=== PATIENT | female | born 1955 | race American Indian/Alaskan Native ===

== ENCOUNTER 2017-08-16 14:36 | Emergency (ER) | payer OTHER ==
[2017-08-16] MEDS ORDERED: ASPIRIN PO ONE (14:55)
[2017-08-16 15:39] LABS: Eosinophils # (Auto) 0.1 K/mm3 (0.0-0.4); Eosinophils % (Auto) 1.3 % (0.0-4.3); Hematocrit 38.1 % (30.3-42.9); Hemoglobin 12.6 gm/dl (10.1-14.3); Lymphocytes # (Auto) 2.1 K/mm3 (1.2-5.4); Lymphocytes % (Auto) 41.2 % (13.4-35.0); Mean Corpuscular HGB Conc 33 % (30-34); Mean Corpuscular Hemoglobin 29 pg (28-32); Mean Corpuscular Volume 88 fl (79-97); Monocytes # (Auto) 0.5 K/mm3 (0.0-0.8); Monocytes % (Auto) 10.6 % (0.0-7.3); Platelet Count 182 K/mm3 (140-440); Red Blood Count 4.32 M/mm3 (3.65-5.03); Red Cell Distribution Width 13.1 % (13.2-15.2)
[2017-08-16 15:54] LABS: BUN/Creatinine Ratio 26; Blood Urea Nitrogen 23 mg/dL (7-17); Calcium 9.3 mg/dL (8.4-10.2); Hemolysis Index 15
--- NOTE | 2017-08-16 16:27 | Emergency Department Report ---
ED Dizziness HPI - General Chief Complaint: Dizziness Stated Complaint: LEFT ARM PAIN/SHAKY LIGHTHEADED Time Seen by Provider: 08/16/17 16:04 Source: patient Mode of arrival: Ambulatory Limitations: No Limitations - History of Present Illness Initial Comments: Mrs. Brooks is a very pleasant 62-year-old female with history of hypertension and dyslipidemia. While she was driving today she felt shaky. She felt as if she was going to pass out. She felt very anxious. She felt her pulse. Her heart rate was normal For One week she's had left arm tingling. She attributed to a pinched nerve. She has a history of cervical disc disease status post fusion. When she walked to a fast food restaurant during the episode, she felt numbness in her right foot. She was able to ambulate. She drove to our hospital. Now sitting at rest she feels very anxious. She feels as if she is having a panic attack. 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 She was actually traveling to the airport in order to catch a plane back home to [place]. She did have a stressful week. She decreased her work load today due to distress. No previous history of panic attack or anxiety. MD Complaint: other (felt faint and felt anxious) -: Sudden Timing: sudden onset Description: near-syncope (anxious), other Severity: moderate Associated Symptoms: other (left arm tingling right foot numbness) - Related Data Previous Rx's Medication Instructions Recorded Last Taken Type LORazepam [Ativan] 0.5 mg PO TID PRN #5 tablet 08/16/17 Unknown Rx Allergies Allergy/AdvReac Type Severity Reaction Status Date / Time No Known Allergies Allergy Unverified 08/16/17 14:54 ED Review of Systems ROS: Stated complaint: LEFT ARM PAIN/SHAKY LIGHTHEADED Other details as noted in HPI Comment: All other systems reviewed and negative Constitutional: denies: fever, malaise Respiratory: denies: cough Cardiovascular: denies: chest pain, palpitations Neurological: numbness, paresthesias. denies: headache, weakness, confusion, abnormal gait, vertigo Psychiatric: denies: depression ED Past Medical Hx - Past Medical History Previous Medical History?: Yes Hx Hypertension: Yes Additional medical history: Dyslipidemia - Surgical History Additional Surgical History: Lumbar and cervical fusion - Family History Family history: CAD/AR, cancer - Social History Smoking Status: Never Smoker Substance Use Type: None Other Social History: Lives in [facility], she is and lives with her - Medications Home Medications: Home Medications Medication Instructions Recorded Confirmed Last Taken Type LORazepam [Ativan] 0.5 mg PO TID PRN #5 tablet 08/16/17 Unknown Rx ED Physical Exam - General Limitations: No Limitations General appearance: alert, in no apparent distress - Head Head exam: Present: atraumatic, normocephalic - Eye Eye exam: Present: normal appearance - ENT ENT exam: Present: mucous membranes moist - Neck Neck exam: Present: normal inspection. Absent: tenderness, meningismus - Respiratory Respiratory exam: Present: normal lung sounds bilaterally. Absent: respiratory distress, wheezes, rales, rhonchi - Cardiovascular Cardiovascular Exam: Present: regular rate, normal rhythm, normal heart sounds. Absent: systolic murmur, diastolic murmur, rubs, gallop - GI/Abdominal GI/Abdominal exam: Present: soft, normal bowel sounds. Absent: distended, tenderness, guarding, rebound - Extremities Exam Extremities exam: Present: normal inspection - Back Exam Back exam: Present: normal inspection - Neurological Exam Neurological exam: Present: alert, oriented X3 - Psychiatric Psychiatric exam: Present: normal affect, normal mood - Skin Skin exam: Present: warm, dry, intact, normal color. Absent: rash ED Medical Decision Making - Lab Data Result diagrams: 08/16/17 14:59 08/16/17 14:59 Laboratory Results - last 24 hr 08/16/17 08/16/17 14:59 14:59 WBC 5.1 RBC 4.32 Hgb 12.6 Hct 38.1 MCV 88 MCH 29 MCHC 33 RDW 13.1 L Plt Count 182 Lymph % (Auto) 41.2 H Scurry % (Auto) 10.6 H Eos % (Auto) 1.3 Baso % (Auto) 1.0 Lymph # 2.1 Scurry # 0.5 Eos # 0.1 Baso # 0.0 Seg Neutrophils % 45.9 Seg Neutrophils # 2.3 Sodium 139 Potassium 3.9 Chloride 99.7 Carbon Dioxide 28 Anion Gap 15 BUN 23 H Creatinine 0.9 Estimated GFR > 60 BUN/Creatinine Ratio 26 Glucose 76 Calcium 9.3 Troponin T < 0.010 - EKG Data 08/16/17 16:29 EKG obtained at 1444 Normal sinus rhythm rate 60 bpm normal axis normal intervals no ST-T signs of ischemia poor R-wave progression in anterior leads - Medical Decision Making Mrs. Brooks is a pleasant healthy female with history of hypertension and dyslipidemia. She takes Maxide and Crestor. Daily aspirin for hx of irregular heart beat She stopped taking Corrina and Zyrtec one month ago for allergy symptoms. Symptoms have mostly resolved. However she stated that she still feels anxious and shaky. She's had the feeling as if the road or room was closing in on her. I do not feel that her symptoms represents ACS. She did not have chest pain, Denies shortness of breath. Left arm tingling seems to be of minimal concern. HEART Score 2 I do not suspect TIA. She was able to ambulate in spite of the right foot numbness. I have cleared her to fly back home if she feels well. She plans to take a flight tomorrow. She will go to a hotel and spend the night here in [place]. I have prescribed Ativan tablets for possible anxiety related to stress at work. She understands to call 911 when the symptoms worsen or persist. Triage vital signs temperature 98.6 pulse ox 100% on room air heart rate 62 RR 12 blood pressure 154/85 Critical care attestation.: If time is entered above; I have spent that time in minutes in the direct care of this critically ill patient, excluding procedure time. ED Disposition Clinical Impression: Lightheadedness, Near syncope, Stress at work Disposition: DC-01 TO HOME OR SELFCARE Is pt being admited?: No Does the pt Need Aspirin: No Condition: Stable Instructions: Near Syncope (ED) Additional Instructions: Please call 911 if symptoms persist or worsen. Prescriptions: LORazepam [Ativan] 0.5 mg PO TID PRN #5 tablet PRN Reason: Anxiety Referrals: PRIMARY CARE, [Primary Care Provider] - 3-5 Days Time of Disposition: 16:35
[2017-08-16 16:47] VITALS: BP 124/77
== END 2017-08-16 16:47 | disposition home or self-care (01) ==
LOC: ED 14:36
DX: R55 Syncope and collapse (principal); R42 Dizziness and giddiness; Z56.3 Stressful work schedule; I10 Essential (primary) hypertension; E78.5 Hyperlipidemia, unspecified
CPT/HCPCS: 36415; 80048; 84484; 85025; 93005; 93010; 99284